=== PATIENT | female | born 1990 | race Caucasian/White ===

== ENCOUNTER 2016-10-31 16:36 | Emergency (ER) | payer MEDICAID ==
--- NOTE | 2016-10-31 17:41 | ED Physician Documentation ---
PD HPI URI - Stated complaint Stated Complaint: COUGH/VOMITING - Chief complaint Chief Complaint: Heent - History obtained from History obtained from: Patient - History of Present Illness Timing - onset: How many weeks ago (3) Timing duration: Weeks (3) Timing details: Gradual onset, Still present Associated symptoms: Ear pain (for several weeks), Dry cough (for 3-4 weeks), Chest pain (with coughing), Dyspnea. No: Fever, Chills, Sore throat, Hemoptysis , NVD, Bilateral edema Contributing factors: No: Sick contact, Travel, Immunocompromised Improves by: Rest Worsened by: Activity Similar symptoms before: Has not had sx before Recently seen: Clinic (Dx with URI. Also has had ear canal infection not improving with cortisporin type ear drops.) Review of Systems Constitutional: reports: Chills, Myalgias. denies: Fever Ears: reports: Ear pain (left more than right) Nose: reports: Sinus pressure / pain. denies: Rhinorrhea / runny nose, Congestion Throat: denies: Sore throat Cardiac: reports: Chest pain / pressure (withc oughing, sternal area). denies: Palpitations Respiratory: reports: Dyspnea, Cough. denies: Wheezing GI: denies: Abdominal Pain, Nausea, Vomiting, Diarrhea Skin: denies: Rash, Lesions PD PAST MEDICAL HISTORY - Past Medical History Past Medical History: Yes Cardiovascular: None Respiratory: None Neuro: None Endocrine/Autoimmune: None GI: GERD HEENT: Other (has had OE treated with with some oral meds and drops. She says it was cultured when would not go away and Dx with Pseudomonas. Was referred to ENT and appt next week. 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 - Present Medications Home Medications: Ambulatory Orders Medication Instructions Recorded Confirmed Albuterol Sulfate [Proair Hfa 2 puffs IH QID #1 hfa.aer.ad 10/31/16 Inhaler] Benzonatate [Tessalon] 100 mg PO TID PRN #25 capsule 10/31/16 Dexamethasone [Decadron] 4 mg PO DAILY #5 tablet 10/31/16 Doxycycline Hyclate 100 mg PO BID #14 tablet 10/31/16 Gabapentin [Neurontin] 300 mg PO TID 10/31/16 10/31/16 Guaifenesin 100 mg PO 10/31/16 10/31/16 Promethazine [Phenergan] 25 mg PO Q6H PRN #20 tab 10/31/16 QUEtiapine [SEROquel] 25 mg PO QPM 10/31/16 10/31/16 Sertraline [Zoloft] 25 mg PO DAILY 10/31/16 10/31/16 Tobramycin/Dexam Ophth Drops 2 drops EACHEAR QID #1 bottle 10/31/16 [Tobradex Ophth Drops] busPIRone [Buspar] 15 mg PO BID 10/31/16 10/31/16 guaiFENesin/CODEINE [Robitussin AC] 10 ml PO Q6H PRN #240 ml 10/31/16 - Allergies Allergies/Adverse Reactions: Allergies Allergy/AdvReac Type Severity Reaction Status Date / Time prazosin Allergy Unknown Verified 10/31/16 16:44 - Social History Does the pt smoke?: No Smoking Status: Never smoker Does the pt drink ETOH?: No Does the pt have substance abuse?: No - Immunizations Immunizations are current?: Yes - POLST Patient has POLST: No PD ED PE NORMAL - Vitals Vital signs reviewed: Yes - General General: Alert and oriented X 3, Well developed/nourished - HEENT HEENT: Atraumatic, Pharynx benign. No: Ears normal (right ear has mild redness medial canal. TM okay. Left ear with redness and some swelling medial canal and some yellowish coating of the canal and some of eardrum.) - Neck Neck: Supple, no meningeal sign, No adenopathy - Cardiac Cardiac: No murmur. No: RRR (fast but regular) - Respiratory Respiratory: Clear bilaterally - Abdomen Abdomen: Soft, Non tender - Derm Derm: Normal color, Warm and dry, No rash - Extremities Extremities: Normal ROM s pain, No edema, No calf tenderness / cord - Neuro Neuro: Alert and oriented X 3, occupational nurse 2-12 intact, No motor deficit, No sensory deficit, Normal speech Results - Vitals Vitals: Oxygen O2 Source Room air - EKG (time done) 18:54 Rate: Rate (enter#) (101) Rhythm: Sinus tachycardia [place]: Normal Intervals: Normal MA QRS: Normal Ischemia: Normal ST segments. No: ST elevation c/w ischemia, ST depression PD MEDICAL DECISION MAKING - ED course Complexity details: reviewed results, considered differential (still tachy at discharge, but looks okay and has regular rhythm, no murmur. ), d/w patient Departure - Departure Disposition: 01 Home, Self Care Clinical Impression: Persistent cough for 3 weeks or longer, Otitis externa due to Pseudomonas aeruginosa Bronchitis, acute Qualifiers: Bronchitis organism: unspecified organism Qualified Code(s): J20.9 - Acute bronchitis, unspecified Dyspnea Qualifiers: Dyspnea type: unspecified Qualified Code(s): R06.00 - Dyspnea, unspecified Condition: Stable Record reviewed to determine appropriate education?: Yes Instructions: ED Upper Resp Infec Abx Tx Prescriptions: Dexamethasone [Decadron] 4 mg PO DAILY #5 tablet Doxycycline Hyclate 100 mg PO BID #14 tablet Promethazine [Phenergan] 25 mg PO Q6H PRN #20 tab PRN Reason: Nausea / Vomiting Albuterol Sulfate [Proair Hfa Inhaler] 2 puffs IH QID #1 hfa.aer.ad guaiFENesin/CODEINE [Robitussin AC] 10 ml PO Q6H PRN #240 ml PRN Reason: Cough Benzonatate [Tessalon] 100 mg PO TID PRN #25 capsule PRN Reason: Cough Tobramycin/Dexam Ophth Drops [Tobradex Ophth Drops] 2 drops EACHEAR QID #1 bottle Comments: There is a bunch of different medicines to try: For the cough you can use Tessalon or codeine cough medicine. For the bronchitis we will treat with doxycycline antibiotic and Decadron steroid as directed. Also use the albuterol inhaler 2 puffs 4 times a day to help with the chest tightness and cough. Phenergan if needed for nausea. Regarding the ear infection, you could try tobramycin which comes as an eyedrop that can be used in the ear and often is effective on Pseudomonas. Follow-up with your primary care if not improved in the next week. Discharge Date/Time: 10/31/16 19:01
[2016-10-31] MEDS ORDERED: DEXAMETHASONE 10 MG/ML VIAL PO STA (17:54)
[2016-10-31] MEDS ORDERED: BENZONATATE 100 MG CAPSULE PO STA (17:54)
[2016-10-31] MEDS ORDERED: PROMETHAZINE 25 MG TABLET PO STA (17:54)
[2016-10-31] MEDS ORDERED: PROMETHAZINE 25 MG TABLET ONE (18:06)
[2016-10-31] MEDS ORDERED: CHERRY SYRUP 10 ML UDC PO ONE (18:07)
[2016-10-31] MEDS ORDERED: BENZONATATE 100 MG CAPSULE PO ONE (18:07)
[2016-10-31] MEDS ORDERED: DEXAMETHASONE 10 MG/ML VIAL ONE (18:07)
[2016-10-31 18:47] VITALS: BP 150/98
== END 2016-10-31 19:01 | disposition home or self-care (01) ==
LOC: ED 16:36
DX: J20.9 Acute bronchitis, unspecified (principal); B96.5 Pseudomonas (aeruginosa) (mallei) (pseudomallei) as the cause of diseases classified elsewhere; H62.40 Otitis externa in other diseases classified elsewhere, unspecified ear; R06.00 Dyspnea, unspecified; R05 Cough; K21.9 Gastro-esophageal reflux disease without esophagitis
CPT/HCPCS: 93005; 99283; A9270; Q0169

== ENCOUNTER 2017-04-21 14:07 | Outpatient (CLI) | payer BC ==
--- NOTE | 2017-04-21 16:16 | Ultrasound Report ---
EXAM: PELVIC ULTRASOUND EXAM DATE: 04/21/2017 03:24 PM. CLINICAL HISTORY: Right lower quadrant pain COMPARISON: None. TECHNIQUE: Realtime transabdominal pelvic scan performed to identify the uterus and adnexa and as an overview of other pelvic structures, followed by transvaginal scan to provide greater detail of the u terus and adnexa, with static image documentation. FINDINGS: Uterus: 9.3 x 4.5 x 5.5 cm, volume 114 cc. Anteverted position. Normal overall size and echotexture. Masses: None. Endometrium: 8 mm. Minimal subendometrial cyst with calcification measuring 6 mm. Cervix: Unremarkable. Right Ovary: 3.8 x 2.0 x 2.1 cm, volume 8.3 cc. Normal echotexture and blood flow. Left Ovary: 2.9 x 1.4 x 1.8 cm, volume 3.5 cc. Normal echotexture and blood flow. Free Fluid: None. Other: None. IMPRESSION: Essentially unremarkable pelvic ultrasound. [facility] Referring Provider Line: [phone] SITE ID: [id number]
== END 2017-04-21 14:08 | disposition home or self-care (01) ==
LOC: DI 14:07
PROVIDERS: ATTEND Specialist
DX: R10.31 Right lower quadrant pain (principal)
CPT/HCPCS: 76830; 76856

== ENCOUNTER 2017-10-16 08:44 | Emergency (ER) | payer OTHER, BC ==
[2017-10-16] MEDS ORDERED: ONDANSETRON ODT 4 MG TABLET TL STA (10:39)
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
[2017-10-16 10:54] LABS: BILIRUBIN,URINE NEGATIVE (NEGATIVE); GLUCOSE, URINE (UA) NEGATIVE (NEGATIVE); KETONES,URINE (UA) NEGATIVE (NEGATIVE); LEUKOCYTE ESTERASE, URINE NEGATIVE (NEGATIVE); NITRITE,URINE NEGATIVE (NEGATIVE); OCCULT BLOOD,URINE NEGATIVE (NEGATIVE); PROTEIN,URINE NEGATIVE (NEGATIVE); UROBILINOGEN,URINE 0.2 (NORMAL) E.U./dL (NORMAL)
[2017-10-16 10:58] LABS: CLARITY,URINE CLEAR (CLEAR); HCG UR QUAL NEGATIVE
[2017-10-16] MEDS ORDERED: ACETAMINOPHEN 325 MG TABLET PO STA (11:30)
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
[2017-10-16 11:49] VITALS: BP 147/98
== END 2017-10-16 12:08 | disposition home or self-care (01) ==
LOC: ED 08:44 → MERGE 08:44 → ED 12:08
DX: S00.83XA Contusion of other part of head, initial encounter (principal); V89.2XXA Person injured in unspecified motor-vehicle accident, traffic, initial encounter; Y92.410 Unspecified street and highway as the place of occurrence of the external cause
CPT/HCPCS: 70486; 81003; 81025; 99283; A9270; Q0162; 81001; 87086

== ENCOUNTER 2017-12-08 13:40 | Emergency (ER) | payer BC, MEDICAID ==
[2017-12-08] MEDS ORDERED: SODIUM CHLORIDE 0.9% 1,000 ML IV ONE (14:01)
[2017-12-08] MEDS ORDERED: DEXAMETHASONE 10 MG/ML VIAL IVP STA (14:01)
[2017-12-08] MEDS ORDERED: KETOROLAC 60 MG/2 ML VIAL IVP STA (14:01)
[2017-12-08] MEDS ORDERED: PROCHLORPERAZINE 10 MG/2 ML VIAL IVP STA (14:02)
[2017-12-08] MEDS ORDERED: diphenhydrAMINE INJ 50 MG/ML VIAL IVP STA (14:02)
--- NOTE | 2017-12-08 14:07 | ED Physician Documentation ---
PD HPI HEADACHE - Stated complaint Stated Complaint: HEADACHE/ THROWING UP - Chief complaint Chief Complaint: Neuro - History obtained from History obtained from: Patient - History of Present Illness Timing - onset: How many weeks ago (1) Timing - onset during: Rest Timing - duration: Weeks (1) Timing - details: Gradual onset, Still present, Waxing and waning Location: Front Quality: Throbbing Associated symptoms: Nausea, Vomiting Improved by: Dark room, Quiet, Meds Worsened by: Light, Noise, Moving Contributing factors: No: Anticoagulated, Recent illness Similar symptoms before: Diagnosis (migriane) Recently seen: Clinic - Additional information Additional information: 27-year-old female with a history of migraine headaches has developed a migraine headache about 1 week ago. She has pain in the front of her head and she has had some nausea and vomiting associated with this as well. Usually when she has a migraine headache the last 2-3 days and this headache is lasted now 1 week and she has not had relief with the use of Tylenol with codeine. She did go and see her doctor at the clinic and she did not have resolution as expected. She states she has tried sumatriptan and with this and this is not helped as well. She denies an aura associated with this headache and denies pain in the back of her neck. Review of Systems Constitutional: denies: Fever Eyes: denies: Decreased vision Ears: reports: Loss of hearing. 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 - Present Medications Home Medications: Ambulatory Orders Medication Instructions Recorded Confirmed busPIRone [Buspar] 15 mg PO BID 10/31/16 10/31/16 Fexofenadine HCl [Fide Allergy] 180 mg PO DAILY 10/16/17 Loratadine [Claritin] 1 tab PO DAILY 10/16/17 Propranolol [Inderal] 10/16/17 traZODone [Desyrel] 1 tab PO DAILY 10/16/17 Acetaminophen/Cod 300/30 [Tylenol 1 each PO ONCE 12/08/17 12/08/17 #3] - Allergies Allergies/Adverse Reactions: Allergies Allergy/AdvReac Type Severity Reaction Status Date / Time prazosin Allergy Unknown Verified 12/08/17 13:48 - Social History Does the pt smoke?: No Smoking Status: Never smoker Does the pt drink ETOH?: No Does the pt have substance abuse?: No - Immunizations Immunizations are current?: Yes - POLST Patient has POLST: No PD ED PE NORMAL - Vitals Vital signs reviewed: Yes (hypertensive) - General General: Alert and oriented X 3, No acute distress, Well developed/nourished - HEENT HEENT: Atraumatic, PERRL, EOMI, Other (The right TM is almost clear today and the left is erythematous and dull ) - Neck Neck: Supple, no meningeal sign, No bony TTP, Other (no significant tension to the trapezius ) - Cardiac Cardiac: RRR, No murmur - Respiratory Respiratory: No respiratory distress, Clear bilaterally - Abdomen Abdomen: Soft, Non tender - Back Back: No CVA TTP, No spinal TTP - Derm Derm: Normal color, Warm and dry, No rash - Extremities Extremities: No deformity, No edema - Neuro Neuro: Alert and oriented X 3, cash clerk 2-12 intact, No motor deficit, No sensory deficit, Normal speech Eye Opening: Spontaneous Motor: Obeys Commands Verbal: Oriented GCS Score: 15 - Psych Psych: Normal mood, Normal affect Results - Vitals Vitals: Vital Signs - 24 hr 12/08/17 13:45 Temperature 36.1 C L Heart Rate 99 Respiratory 16 Rate Blood Pressure 138/94 H O2 Saturation 100 Oxygen O2 Source Room air - Labs Labs: Laboratory Tests 12/08/17 12/08/17 12/08/17 14:10 14:10 15:22 WBC 9.1 RBC 4.26 Hgb 13.1 Hct 38.2 MCV 89.5 MCH 30.8 MCHC 34.5 RDW 15.1 H Plt Count 375 MPV 6.9 L Neut # (Auto) 8.3 H Lymph # (Auto) 0.4 L [place] # (Auto) 0.4 Eos # (Auto) 0.0 Baso # (Auto) 0.0 Absolute Nucleated RBC 0.00 Nucleated RBC % 0.0 Sodium 134 L Potassium 3.5 Chloride 100 L Carbon Dioxide 24 Anion Gap 10.0 BUN 15 Creatinine 0.6 Estimated GFR (MDRD) 118 Glucose 105 H Calcium 9.1 Total Bilirubin 0.6 AST 23 ALT 19 Alkaline Phosphatase 76 Total Protein 7.9 Albumin 4.4 Globulin 3.5 Albumin/Globulin Ratio 1.3 Lipase 24 Urine Color YELLOW Urine Clarity CLEAR Urine pH 6.0 Ur Specific [place] 1.010 Urine Protein NEGATIVE Urine Glucose (UA) NEGATIVE Urine Ketones NEGATIVE Urine Occult Blood TRACE-INTA Urine Nitrite NEGATIVE Urine Bilirubin NEGATIVE Urine Urobilinogen 0.2 (NORMAL) Ur Leukocyte Esterase NEGATIVE Ur Microscopic Review NOT INDICATED Urine Culture Comments NOT INDICATED Urine HCG, Qual NEGATIVE Procedures - IVC sono (time) 1400 Bedside IVC sono: IVC measures (cm) (0.97), IVC collapsed c insp (cm) (complete) , Dehydration (est 1.5 liter deficit) PD MEDICAL DECISION MAKING - ED course Complexity details: reviewed results, re-evaluated patient, considered differential, d/w patient ED course: 27-year-old female with a history of migraine has developed a headache lasting 4 days. She is administered dexamethasone Compazine Benadryl Toradol and a liter of saline. She has improvement in her symptoms. - Sepsis Event Vital Signs: Vital Signs - 24 hr 12/08/17 13:45 Temperature 36.1 C L Heart Rate 99 Respiratory 16 Rate Blood Pressure 138/94 H O2 Saturation 100 Oxygen O2 Source Room air Departure - Departure Disposition: 01 Home, Self Care Clinical Impression: Migraine Qualifiers: Migraine type: without aura Status migrainosus presence: without status migrainosus Intractability: not intractable Qualified Code(s): G43.009 - Migraine without aura, not intractable, without status migrainosus Condition: Stable Instructions: ED Headache Migraine Follow-Up: ELENA BARRIGA ARNP [Primary Care Provider] -
[2017-12-08 14:30] LABS: BASOPHILS % (AUTO) 0.2 %; EOSINOPHILS % (AUTO) 0.2 %; HGB - HEMOGLOBIN 13.1 g/dL (12.0-16.0); LYMPHOCYTES # (AUTO) 0.4 10^3/uL (1.5-3.5); LYMPHOCYTES % (AUTO) 3.9 %; MEAN CORPUSCULAR HEMOGLOBIN 30.8 pg (27.0-31.0); MEAN CORPUSCULAR HGB CONC 34.5 g/dL (32.0-36.0); MEAN CORPUSCULAR VOLUME 89.5 fL (81.0-99.0); MEAN PLATELET VOLUME 6.9 fL (7.9-10.8); MONOCYTES # (AUTO) 0.4 10^3/uL (0.0-1.0); MONOCYTES % (AUTO) 4.7 %; NEUTROPHILS # (AUTO) 8.3 10^3/uL (1.5-6.6); PLT - PLATELET COUNT 375 10^3/uL (130-450); RED BLOOD COUNT 4.26 10^6/uL (4.20-5.40); RED CELL DISTRIBUTION WIDTH 15.1 % (12.0-15.0); WHITE BLOOD COUNT 9.1 x10^3/uL (4.8-10.8)
[2017-12-08 14:45] LABS: ALBUMIN 4.4 g/dL (3.2-5.5); ALBUMIN/GLOBULIN RATIO 1.3 (1.0-2.2); BILIRUBIN,TOTAL 0.6 mg/dL (0.2-1.0); CALCIUM 9.1 mg/dL (8.5-10.3); CREATININE 0.6 mg/dL (0.4-1.0); TOTAL PROTEIN 7.9 g/dL (6.7-8.2)
[2017-12-08 15:34] LABS: BILIRUBIN,URINE NEGATIVE (NEGATIVE); GLUCOSE, URINE (UA) NEGATIVE (NEGATIVE); KETONES,URINE (UA) NEGATIVE (NEGATIVE); LEUKOCYTE ESTERASE, URINE NEGATIVE (NEGATIVE); NITRITE,URINE NEGATIVE (NEGATIVE); OCCULT BLOOD,URINE TRACE-INTA (NEGATIVE); PROTEIN,URINE NEGATIVE (NEGATIVE); UROBILINOGEN,URINE 0.2 (NORMAL) E.U./dL (NORMAL)
[2017-12-08 15:37] LABS: CLARITY,URINE CLEAR (CLEAR); HCG UR QUAL NEGATIVE
[2017-12-08 16:11] VITALS: BP 128/82
== END 2017-12-08 16:11 | disposition home or self-care (01) ==
LOC: ED 13:40
DX: G43.009 Migraine without aura, not intractable, without status migrainosus (principal); E86.0 Dehydration
CPT/HCPCS: 80053; 81003; 81025; 83690; 85025; 96361; 96374; 96375; 99283; 99284; J1200; 36415; 81001; 87086

== ENCOUNTER 2019-01-28 12:59 | Outpatient (CLI) | payer BC | END 2019-01-28 13:00 | disposition home or self-care (01) | LOC: NS 12:59 | PROVIDERS: ATTEND Student in an Organized Health Care Education/Training Program | DX: E66.8 Other obesity (principal); Z68.33 Body mass index [BMI] 33.0-33.9, adult ==

== ENCOUNTER 2019-09-19 10:11 | Outpatient (CLI) | payer BC ==
[2019-09-19 12:00] LABS: BASOPHILS # (AUTO) 0.1 10^3/uL (0.0-0.1); BASOPHILS % (AUTO) 0.8 %; EOSINOPHILS # (AUTO) 0.2 10^3/uL (0.0-0.7); EOSINOPHILS % (AUTO) 2.4 %; HGB - HEMOGLOBIN 12.7 g/dL (12.0-16.0); LYMPHOCYTES # (AUTO) 1.6 10^3/uL (1.5-3.5); LYMPHOCYTES % (AUTO) 20.8 %; MEAN CORPUSCULAR HEMOGLOBIN 30.1 pg (27.0-31.0); MEAN CORPUSCULAR HGB CONC 31.6 g/dL (32.0-36.0); MEAN CORPUSCULAR VOLUME 95.3 fL (81.0-99.0); MEAN PLATELET VOLUME 9.5 fL (7.9-10.8); MONOCYTES # (AUTO) 0.6 10^3/uL (0.0-1.0); MONOCYTES % (AUTO) 7.6 %; NEUTROPHILS # (AUTO) 5.2 10^3/uL (1.5-6.6); NEUTROPHILS % (AUTO) 68.3 %; PLT - PLATELET COUNT 431 10^3/uL (130-450); RED BLOOD COUNT 4.22 10^6/uL (4.20-5.40); RED CELL DISTRIBUTION WIDTH 13.9 % (12.0-15.0); WHITE BLOOD COUNT 7.6 x10^3/uL (4.8-10.8)
[2019-09-19 12:41] LABS: ALBUMIN/GLOBULIN RATIO 1.3 (1.0-2.2); ALKALINE PHOSPHATASE 77 IU/L (42-121); ALT ALANINE AMINOTRANSFERASE 36 IU/L (10-60); AST ASPARTATE AMINOTRANSFERASE 33 IU/L (10-42); BILIRUBIN,TOTAL 0.7 mg/dL (0.2-1.0); BUN - BLOOD UREA NITROGEN 21 mg/dL (6-20); CALCIUM 8.9 mg/dL (8.5-10.3); CARBON DIOXIDE - CO2 22 mmol/L (21-32); CHLORIDE 102 mmol/L (101-111); CHOL/HDL RATIO 5.5 (<4.4); CHOLESTEROL 219 mg/dL; CREATININE 0.7 mg/dL (0.4-1.0); GLUCOSE 100 mg/dL (70-100); HDL CHOLESTEROL 40 mg/dL; LDL CHOLESTEROL,CALCULATED 121 mg/dL; SODIUM 136 mmol/L (135-145); TOTAL PROTEIN 7.2 g/dL (6.7-8.2); VLDL CHOLESTEROL 58 mg/dL
== END 2019-09-19 23:59 | disposition home or self-care (01) ==
LOC: LAB.WCP 10:11
PROVIDERS: ATTEND Family Medicine
DX: I10 Essential (primary) hypertension (principal); F41.9 Anxiety disorder, unspecified; L70.9 Acne, unspecified
CPT/HCPCS: 36415; 80053; 80061; 83721; 84443; 85025

== ENCOUNTER 2019-11-29 10:09 | Outpatient (CLI) | payer BC ==
--- NOTE | 2019-11-29 10:54 | XRAY Report ---
PROCEDURE: Elbow 2 View LT INDICATIONS: ELBOW PAIN, LEFT TECHNIQUE: 2 views of the elbow were acquired. COMPARISON: None available FINDINGS: Bones: No fractures or dislocations. No suspicious bony lesions. Soft tissues: No definite elbow joint effusion. No suspicious soft tissue calcifications. IMPRESSION: No displaced fracture can be seen. Note: Findings of no fracture related to PA Young through the answering service at 9:50 AM [facility] on 11/29/2019. Reviewed by: Uvaldo Ross MD on 11/29/2019 9:53 AM [facility] Approved by: Uvaldo Ross MD on 11/29/2019 9:53 AM [facility] Station ID: [id number]
== END 2019-11-29 10:10 | disposition home or self-care (01) ==
LOC: DI 10:09
PROVIDERS: ATTEND Family Medicine
DX: M25.522 Pain in left elbow (principal)

== ENCOUNTER 2020-05-25 08:00 | Outpatient (CLI) | payer BC ==
[2020-05-26 12:21] LABS: BASOPHILS # (AUTO) 0.1 10^3/uL (0.0-0.1); BASOPHILS % (AUTO) 0.5 %; EOSINOPHILS # (AUTO) 0.3 10^3/uL (0.0-0.7); EOSINOPHILS % (AUTO) 2.1 %; HGB - HEMOGLOBIN 12.5 g/dL (12.0-16.0); LYMPHOCYTES # (AUTO) 2.5 10^3/uL (1.5-3.5); LYMPHOCYTES % (AUTO) 21.6 %; MEAN CORPUSCULAR HEMOGLOBIN 30.6 pg (27.0-31.0); MEAN CORPUSCULAR HGB CONC 30.5 g/dL (32.0-36.0); MEAN CORPUSCULAR VOLUME 100.2 fL (81.0-99.0); MEAN PLATELET VOLUME 9.4 fL (7.9-10.8); MONOCYTES # (AUTO) 0.8 10^3/uL (0.0-1.0); MONOCYTES % (AUTO) 6.8 %; NEUTROPHILS % (AUTO) 68.6 %; PLT - PLATELET COUNT 493 10^3/uL (130-450); RED BLOOD COUNT 4.09 10^6/uL (4.20-5.40); RED CELL DISTRIBUTION WIDTH 14.4 % (12.0-15.0); WHITE BLOOD COUNT 11.7 x10^3/uL (4.8-10.8)
[2020-05-26 12:37] LABS: ALBUMIN 4.1 g/dL (3.2-5.5); ALBUMIN/GLOBULIN RATIO 1.3 (1.0-2.2); BILIRUBIN,TOTAL 0.3 mg/dL (0.2-1.0); CALCIUM 9.1 mg/dL (8.5-10.3); CREATININE 0.8 mg/dL (0.4-1.0); TOTAL PROTEIN 7.2 g/dL (6.7-8.2)
[2020-05-26 15:13] LABS: HEMOGLOBIN A1c% 5.5 % (4.27-6.07)
== END 2020-05-25 23:59 | disposition home or self-care (01) ==
LOC: LAB.WCP 08:00
PROVIDERS: ATTEND Nurse Practitioner Family
DX: E88.81 Metabolic syndrome and other insulin resistance (principal); I10 Essential (primary) hypertension
CPT/HCPCS: 36415; 80053; 83036; 85025

== ENCOUNTER 2020-06-04 08:00 | Outpatient (CLI) | payer BC ==
[2020-06-04 18:15] LABS: BASOPHILS # (AUTO) 0.1 10^3/uL (0.0-0.1); BASOPHILS % (AUTO) 0.5 %; EOSINOPHILS # (AUTO) 0.2 10^3/uL (0.0-0.7); EOSINOPHILS % (AUTO) 1.8 %; HCT - HEMATOCRIT 38.9 % (37.0-47.0); HGB - HEMOGLOBIN 12.7 g/dL (12.0-16.0); LYMPHOCYTES # (AUTO) 2.5 10^3/uL (1.5-3.5); LYMPHOCYTES % (AUTO) 22.1 %; MEAN CORPUSCULAR HEMOGLOBIN 30.9 pg (27.0-31.0); MEAN CORPUSCULAR HGB CONC 32.6 g/dL (32.0-36.0); MEAN CORPUSCULAR VOLUME 94.6 fL (81.0-99.0); MEAN PLATELET VOLUME 9.1 fL (7.9-10.8); MONOCYTES # (AUTO) 0.9 10^3/uL (0.0-1.0); MONOCYTES % (AUTO) 8.4 %; NEUTROPHILS # (AUTO) 7.4 10^3/uL (1.5-6.6); NEUTROPHILS % (AUTO) 66.8 %; PLT - PLATELET COUNT 521 10^3/uL (130-450); RED BLOOD COUNT 4.11 10^6/uL (4.20-5.40); RED CELL DISTRIBUTION WIDTH 14.1 % (12.0-15.0); WHITE BLOOD COUNT 11.1 x10^3/uL (4.8-10.8)
[2020-06-04 18:56] LABS: FOLATE 6.48 ng/mL (5.90 - >24.8)
== END 2020-06-04 23:59 | disposition home or self-care (01) ==
LOC: LAB.WCP 08:00
PROVIDERS: ATTEND Nurse Practitioner Family
DX: D64.9 Anemia, unspecified (principal); D72.829 Elevated white blood cell count, unspecified
CPT/HCPCS: 36415; 82607; 82746; 85025

== ENCOUNTER 2020-08-27 15:59 | Outpatient (CLI) | payer BC ==
--- NOTE | 2020-08-27 16:30 | XRAY Report ---
PROCEDURE: Cervical Spine 2 View INDICATIONS: NECK PAIN TECHNIQUE: 3 view(s) of the cervical spine were acquired. COMPARISON: None. FINDINGS: Bones: No fractures or dislocations to the C7 level. The lateral masses of C1 appear intact on the odontoid view. No suspicious bony lesions. Mild disc space narrowing and endplate osteophyte format ion at C4-C5, and C5-C6, indicating degenerative disc disease. Soft tissues: No prevertebral soft tissue swelling. IMPRESSION: Mild mid cervical degenerative disc disease. No acute fracture. No osseous lesion. If sy mptoms and/or clinical suspicion for pathology continue, further assessment with repeat plain films, or advanced imaging (e.g., CT, MRI, or bone scan) is recommended for further assessment. Reviewed by: Carlin Gaona MD on 08/27/2020 4:28 PM PDT Approved by: Carlin Gaona MD on 08/27/2020 4:28 PM PDT Station ID: [id number]
== END 2020-08-27 16:00 | disposition home or self-care (01) ==
LOC: DI.N 15:59
PROVIDERS: ATTEND Nurse Practitioner Family
DX: M50.321 Other cervical disc degeneration at C4-C5 level (principal)

== ENCOUNTER 2020-11-21 15:16 | Emergency (ER) | payer BC ==
[2020-11-21] MEDS ORDERED: oxyCODONE 5 MG TABLET PO STA (18:14)
[2020-11-21] MEDS ORDERED: DEXAMETHASONE 10 MG/ML VIAL IVP STA (18:14)
[2020-11-21] MEDS ORDERED: KETOROLAC 30 MG/ML VIAL IVP STA (18:14)
--- NOTE | 2020-11-21 18:14 | ED Physician Documentation ---
History of Present Illness - Stated complaint Stated Complaint: NECK PX/TINGLES - Chief complaint Chief Complaint: General - History obtained from History obtained from: Patient - History of Present Illness Pain level max: 7 Pain level now: 7 - Additonal information Additional information: Patient is a 30-year-old female who presents to the emergency department stating for the past several weeks she has had pain to her cervical spine. She states that she gets tingling sensations in her bilateral upper extremities. Worse with movement, better with rest. States Motrin is not helping the pain. She also states she has been getting intermittent dizzy spells. She states these last from 1 to 10 minutes. Associated with lightheadedness. Seems to be when her pain worsens in her neck. Review of Systems Constitutional: denies: Fever, Chills Nose: denies: Rhinorrhea / runny nose, Congestion Throat: denies: Sore throat Cardiac: denies: Chest pain / pressure, Palpitations Respiratory: denies: Dyspnea, Cough, Wheezing GI: denies: Abdominal Pain, Nausea, Vomiting, Diarrhea Skin: denies: Rash Musculoskeletal: denies: Back pain Neurologic: denies: Focal weakness, Seizure, Confused, Headache PD PAST MEDICAL HISTORY - Past Medical History Cardiovascular: None, Other Respiratory: None Endocrine/Autoimmune: None GI: GERD HEENT: Other Psych: Depression, Anxiety - Past Surgical History Past Surgical History: Yes General: EGD 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 - Present Medications Home Medications: Ambulatory Orders Medication Instructions Recorded Confirmed busPIRone [Buspar] 15 mg PO BID 10/31/16 10/31/16 Fexofenadine HCl [Fide Allergy] 180 mg PO DAILY 10/16/17 Loratadine [Claritin] 1 tab PO DAILY 10/16/17 Propranolol [Inderal] 10/16/17 traZODone [Desyrel] 1 tab PO DAILY 10/16/17 Acetaminophen/Cod 300/30 [Tylenol 1 each PO ONCE 12/08/17 12/08/17 #3] Gabapentin [Neurontin] 300 mg PO TID #90 11/21/20 Oxycodone HCl/Acetaminophen 1 - 2 each PO Q6H PRN #14 tablet 11/21/20 [Percocet 5-325 mg Tablet] methylPREDNISolone [Medrol] 4 mg PO DAILY #1 11/21/20 - Allergies Allergies/Adverse Reactions: Allergies Allergy/AdvReac Type Severity Reaction Status Date / Time prazosin Allergy Unknown Verified 11/21/20 16:04 - Social History Does the pt smoke?: No Smoking Status: Never smoker Does the pt drink ETOH?: No Does the pt have substance abuse?: No - Immunizations Immunizations are current?: Yes - POLST Patient has POLST: No PD ED PE NORMAL - Vitals Vital signs reviewed: Yes - General General: Alert and oriented X 3, No acute distress - HEENT HEENT: Moist mucous membranes, Pharynx benign - Neck Neck: No JVD, No bruit, Other (TTP posterior cervical spine. no midline TTP. mild B paraspinal spasm. ) - Cardiac Cardiac: RRR, Strong equal pulses - Respiratory Respiratory: No respiratory distress, Clear bilaterally - Abdomen Abdomen: Soft, Non tender, Non distended - Back Back: No spinal TTP - Derm Derm: Warm and dry - Extremities Extremities: No edema - Neuro Neuro: Alert and oriented X 3, mud boss 2-12 intact, No motor deficit, No sensory deficit, Normal speech Eye Opening: Spontaneous Motor: Obeys Commands Verbal: Oriented GCS Score: 15 Results - Vitals Vitals: Vital Signs - 24 hr 11/21/20 11/21/20 11/21/20 16:00 18:41 19:28 Temperature 36.4 C L Heart Rate 80 89 93 Respiratory 16 18 18 Rate Blood Pressure 152/104 H 148/94 H O2 Saturation 100 99 11/21/20 20:17 Temperature 37.2 C Heart Rate 99 Respiratory 17 Rate Blood Pressure 150/90 H O2 Saturation 99 Oxygen O2 Source Room air - EKG (time done) 1811 Rate: Rate (enter#) (82) Rhythm: NSR [place]: Normal Intervals: Normal [place] QRS: Normal Ischemia: Normal ST segments - Labs Labs: Laboratory Tests 11/21/20 11/21/20 11/21/20 18:12 18:12 18:12 WBC 11.2 H RBC 4.28 Hgb 12.6 Hct 39.7 MCV 92.8 MCH 29.4 MCHC 31.7 L RDW 14.8 Plt Count 493 H MPV 8.6 Neut # (Auto) 8.5 H Lymph # (Auto) 1.8 [place] # (Auto) 0.6 Eos # (Auto) 0.2 Baso # (Auto) 0.1 Absolute Nucleated RBC 0.00 Nucleated RBC % 0.0 Sodium 140 Potassium 3.6 Chloride 103 Carbon Dioxide 24 Anion Gap 13.0 BUN 19 Creatinine 0.7 Estimated GFR (MDRD) 97 Glucose 108 H Calcium 9.4 Total Bilirubin 0.5 AST 19 ALT 20 Alkaline Phosphatase 76 Troponin I High Sens 2.4 Total Protein 7.7 Albumin 4.7 Globulin 3.0 Albumin/Globulin Ratio 1.6 Lipase 28 - Rads (name of study) cxr Radiology: Final report received, EMP read contemporaneously, See rad report (no acute disease) PD MEDICAL DECISION MAKING - ED course Complexity details: reviewed results, re-evaluated patient, considered differential, d/w patient ED course: 30-year-old female with ongoing neck pain. Sounds like cervical radiculopathy. She is working on getting scheduled for an MRI. No MRI available here tonight. No acute neurological deficits. Pain well controlled. She was having episodes of dizziness and near syncope. No evidence of cardiac etiology. Likely related to her pain in her neck. We will have her follow-up closely with her doctor for urgent MRI. She states that she was on prednisone recently, stopped about a week ago and that is when the pain increased in her neck again. We will trial her on a Medrol Dosepak. We will place her on gabapentin and pain medication as well. Patient counseled regarding signs and symptoms for which I believe and urgent re-evaluation would be necessary. Patient with good understanding of and agreement to plan and is comfortable going home at this time This document was made in part using voice recognition software. While efforts are made to proofread this document, sound alike and grammatical errors may occur. Departure - Departure Disposition: 01 Home, Self Care Clinical Impression: Cervical radiculopathy, Near syncope Condition: Good Instructions: ED Cervical Radiculopathy, ED Near Syncope Unkn Follow-Up: Perri Bowen ARNP [Primary Care Provider] - Within 1 week Prescriptions: methylPREDNISolone [Medrol] 4 mg PO DAILY #1 Gabapentin [Neurontin] 300 mg PO TID #90 Oxycodone HCl/Acetaminophen [Percocet 5-325 mg Tablet] 1 - 2 each PO Q6H PRN #14 tablet PRN Reason: pain Comments: I do think it is reasonable that you have an MRI at this time. There is no MRI in the hospital tonight. Please follow-up with your doctor for further care. I am prescribing a short course of narcotic pain medication for you. These are potentially dangerous and addictive medications that should be used carefully. These medications may constipate you. Take an tckg-bll-yilpdgq stool softener (docusate) twice daily with plenty of water while taking these medications. If you go 24 hours without a bowel movement, take mxsb-akx-amgtouk miralax, per package instructions. Do not drink or drive while taking these medications. If you received narcotic or sedating medications while in the emergency department, do not drive for 24 hours. Store this medication in a safe, secure place and out of reach of children. It is a violation of federal law to give or sell this medication to another person or to use in a manner other than prescribed. The ED will not refill narcotic prescriptions, including prescriptions lost or stolen. To dispose of unwanted medications: 1. [facility] at [address] in [place] has a medication drop box. They accept prescription medications (in pill form) Sunday through Sunday 9:00 a.m. to 5:00 p.m. 2. The [facility] Police Department accepts prescription medications (in pill form only) for disposal year round. Call for more information. 3. Contact the [facility] for the next [facility] sponsored prescription drug collection event. , [phone], or [phone]; Discharge Date/Time: 11/21/20 20:23
[2020-11-21 18:19] LABS: BASOPHILS # (AUTO) 0.1 10^3/uL (0.0-0.1); BASOPHILS % (AUTO) 0.4 %; EOSINOPHILS # (AUTO) 0.2 10^3/uL (0.0-0.7); EOSINOPHILS % (AUTO) 1.7 %; HCT - HEMATOCRIT 39.7 % (37.0-47.0); HGB - HEMOGLOBIN 12.6 g/dL (12.0-16.0); LYMPHOCYTES # (AUTO) 1.8 10^3/uL (1.5-3.5); LYMPHOCYTES % (AUTO) 16.2 %; MEAN CORPUSCULAR HEMOGLOBIN 29.4 pg (27.0-31.0); MEAN CORPUSCULAR HGB CONC 31.7 g/dL (32.0-36.0); MEAN CORPUSCULAR VOLUME 92.8 fL (81.0-99.0); MEAN PLATELET VOLUME 8.6 fL (7.9-10.8); MONOCYTES # (AUTO) 0.6 10^3/uL (0.0-1.0); MONOCYTES % (AUTO) 4.9 %; NEUTROPHILS # (AUTO) 8.5 10^3/uL (1.5-6.6); NEUTROPHILS % (AUTO) 76.5 %; PLT - PLATELET COUNT 493 10^3/uL (130-450); RED BLOOD COUNT 4.28 10^6/uL (4.20-5.40); RED CELL DISTRIBUTION WIDTH 14.8 % (12.0-15.0); WHITE BLOOD COUNT 11.2 x10^3/uL (4.8-10.8)
[2020-11-21 18:32] LABS: ALBUMIN 4.7 g/dL (3.2-5.5); ALBUMIN/GLOBULIN RATIO 1.6 (1.0-2.2); BILIRUBIN,TOTAL 0.5 mg/dL (0.2-1.0); CALCIUM 9.4 mg/dL (8.5-10.3); CREATININE 0.7 mg/dL (0.4-1.0); POTASSIUM 3.6 mmol/L (3.5-5.0); TOTAL PROTEIN 7.7 g/dL (6.7-8.2)
[2020-11-21] MEDS ORDERED: LORazepam 2 MG/ML VIAL IVP STA (19:31)
--- NOTE | 2020-11-21 19:32 | XRAY Report ---
PROCEDURE: Chest 1 View X-Ray INDICATIONS: near syncope TECHNIQUE: One view of the chest was acquired. COMPARISON: None FINDINGS: Surgical changes and devices: None. Lungs and pleura: No pleural effusions or pneumothorax. Scattered atelectasis without focal consol idation. Mediastinum: Mediastinal contours appear normal. Heart size is normal. Bones and chest wall: No suspicious bony lesions. Overlying soft tissues appear unremarkable. IMPRESSION: Mild scattered atelectasis. No focal consolidation. Reviewed by: Hieu Freitas MD on 11/21/2020 7:30 PM PDT Approved by: Hieu Freitas MD on 11/21/2020 7:30 PM PDT Station ID: [id number]
[2020-11-21 20:18] VITALS: BP 150/90
== END 2020-11-21 20:23 | disposition home or self-care (01) ==
LOC: ED 15:16
DX: M54.12 Radiculopathy, cervical region (principal); R55 Syncope and collapse
CPT/HCPCS: 36415; 71045; 80053; 83690; 84484; 85025; 93005; 96374; 96375; 99284; A9270; J2060

== ENCOUNTER 2020-11-23 10:24 | Outpatient (CLI) | payer BC ==
--- NOTE | 2020-11-23 13:10 | MRI Report ---
PROCEDURE: Cervical Spine W/O INDICATIONS: NECK PAIN TECHNIQUE: Noncontrast sagittal T1 spin echo and T2 fast spin echo, sagittal STIR, foraminal oblique sagittal T2 fast spin echo, and axial gradient echo or T2 fast spin echo through the cervical spine. COMPARISON: None. FINDINGS: Image quality: Excellent. Alignment and Curvature: Straightening of usual cervical lordosis. Otherwise normal alignment. Verteb ral body heights maintained. Bone Marrow: Normal bone marrow signal intensity. Spinal Cord: Normal morphology and signal intensity of the cervical cord. There is no syrinx Regional Soft Tissues: No paravertebral masses. Prevertebral soft tissues are normal in thickness. From C2-C3 through C7-T1: No spinal canal or neural foraminal stenosis. Minimal disc height loss at C 4-C5 and C5-C6 without disc herniation. No facet hypertrophy, or uncovertebral hypertrophy. No signif icant interval changes otherwise. IMPRESSION: No spinal canal stenosis or neural foraminal stenosis. Minimal degenerative change at C4-C5 and C5-C6. Reviewed by: Rigoberto Mcduffie MD on 11/23/2020 1:09 PM PDT Approved by: Rigoberto Mcduffie MD on 11/23/2020 1:09 PM PDT Station ID: [id number]
== END 2020-11-23 10:25 | disposition home or self-care (01) ==
LOC: DI 10:24
PROVIDERS: ATTEND Nurse Practitioner
DX: M47.892 Other spondylosis, cervical region (principal); M50.321 Other cervical disc degeneration at C4-C5 level

== ENCOUNTER 2020-11-29 16:16 | Outpatient (CLI) | payer BC ==
[2020-11-29 20:53] LABS: RHEUMATOID FACTOR NEGATIVE (Negative)
[2020-11-29 21:00] LABS: URIC ACID 4.4 mg/dL (2.6-7.2)
[2020-11-29 21:01] LABS: CRP - C-REACTIVE PROTEIN < 1.0 mg/dL (0-1.0)
[2020-12-02 10:45] LABS: DNA (DS) ANTIBODY 1 IU/mL
[2020-12-02 19:01] LABS: CYCLIC CITRULL PEPTIDE CCP IGG <16 UNITS
[2020-12-02 23:51] LABS: ANA SCREEN POSITIVE (NEGATIVE)
== END 2020-11-29 16:17 | disposition home or self-care (01) ==
LOC: LAB.N 16:16
PROVIDERS: ATTEND Nurse Practitioner
DX: M54.2 Cervicalgia (principal); M08.90 Juvenile arthritis, unspecified, unspecified site
CPT/HCPCS: 36415; 84550; 85651; 86038; 86140; 86200; 86225; 86430

== ENCOUNTER 2021-02-28 16:48 | Outpatient (CLI) | payer BC | END 2021-02-28 23:59 | disposition home or self-care (01) | LOC: LAB 16:48 | PROVIDERS: ATTEND Nurse Practitioner | DX: J01.90 Acute sinusitis, unspecified (principal); J06.9 Acute upper respiratory infection, unspecified; Z20.822 Contact with and (suspected) exposure to COVID-19 | CPT/HCPCS: 87275; 87276 ==

== ENCOUNTER 2021-06-04 09:15 | Outpatient (CLI) | payer BC ==
[2021-06-04 13:55] LABS: BILIRUBIN,URINE NEGATIVE (NEGATIVE); GLUCOSE, URINE (UA) NEGATIVE (NEGATIVE); KETONES,URINE (UA) NEGATIVE (NEGATIVE); LEUKOCYTE ESTERASE, URINE NEGATIVE (NEGATIVE); NITRITE,URINE NEGATIVE (NEGATIVE); OCCULT BLOOD,URINE NEGATIVE (NEGATIVE); PROTEIN,URINE NEGATIVE (NEGATIVE); UROBILINOGEN,URINE 0.2 (NORMAL) E.U./dL (NORMAL)
[2021-06-04 14:03] LABS: BACTERIA,URINE None Seen /HPF (None Seen); CLARITY,URINE CLEAR (CLEAR); RBC,URINE None Seen /HPF (0-5); SQUAMOUS EPITHELIAL CELL,UR FEW Squamous (<= Few); WBC,URINE 0-3 /HPF (0-5)
[2021-06-04 14:07] LABS: BASOPHILS # (AUTO) 0.1 10^3/uL (0.0-0.1); EOSINOPHILS # (AUTO) 0.3 10^3/uL (0.0-0.7); HCT - HEMATOCRIT 38.4 % (37.0-47.0); HGB - HEMOGLOBIN 12.1 g/dL (12.0-16.0); LYMPHOCYTES # (AUTO) 1.8 10^3/uL (1.5-3.5); LYMPHOCYTES % (AUTO) 29.2 %; MEAN CORPUSCULAR HGB CONC 31.5 g/dL (32.0-36.0); MEAN CORPUSCULAR VOLUME 92.1 fL (81.0-99.0); MEAN PLATELET VOLUME 9.3 fL (7.9-10.8); MONOCYTES # (AUTO) 0.6 10^3/uL (0.0-1.0); MONOCYTES % (AUTO) 9.8 %; NEUTROPHILS # (AUTO) 3.5 10^3/uL (1.5-6.6); NEUTROPHILS % (AUTO) 55.8 %; PLT - PLATELET COUNT 436 10^3/uL (130-450); RED BLOOD COUNT 4.17 10^6/uL (4.20-5.40); RED CELL DISTRIBUTION WIDTH 16.5 % (12.0-15.0); WHITE BLOOD COUNT 6.2 x10^3/uL (4.8-10.8)
[2021-06-04 14:42] LABS: ALBUMIN 4.3 g/dL (3.2-5.5); ALBUMIN/GLOBULIN RATIO 1.4 (1.0-2.2); ALKALINE PHOSPHATASE 60 IU/L (42-121); ALT ALANINE AMINOTRANSFERASE 18 IU/L (10-60); AST ASPARTATE AMINOTRANSFERASE 20 IU/L (10-42); BILIRUBIN,TOTAL 0.7 mg/dL (0.2-1.0); BUN - BLOOD UREA NITROGEN 23 mg/dL (6-20); CALCIUM 9.2 mg/dL (8.5-10.3); CARBON DIOXIDE - CO2 24 mmol/L (21-32); CHLORIDE 101 mmol/L (101-111); CHOL/HDL RATIO 5.6 (<4.4); CHOLESTEROL 269 mg/dL; CREATININE 0.7 mg/dL (0.4-1.0); GFR - MDRD 97 (>89); GLUCOSE 97 mg/dL (70-100); HDL CHOLESTEROL 48 mg/dL; LDL CHOLESTEROL,CALCULATED 179 mg/dL; LDL/HDL RATIO 3.7 (<4.4); POTASSIUM 3.7 mmol/L (3.5-5.0); SODIUM 135 mmol/L (135-145); TOTAL PROTEIN 7.4 g/dL (6.7-8.2); TRIGLYCERIDES 211 mg/dL; VLDL CHOLESTEROL 42 mg/dL
[2021-06-04 14:50] LABS: THYROID STIMULATING HORMONE 1.42 uIU/mL (0.34-5.60)
[2021-06-04 15:09] LABS: ESTIMATED AVERAGE GLUCOSE 108 mg/dL (70-100); HEMOGLOBIN A1c% 5.4 % (4.27-6.07)
== END 2021-06-04 09:16 | disposition home or self-care (01) ==
LOC: LAB.N 09:15
PROVIDERS: ATTEND Nurse Practitioner
DX: Z00.00 Encounter for general adult medical examination without abnormal findings (principal); E88.81 Metabolic syndrome and other insulin resistance; I10 Essential (primary) hypertension; R53.83 Other fatigue; D72.829 Elevated white blood cell count, unspecified
CPT/HCPCS: 36415; 80053; 80061; 81001; 83036; 83721; 84443; 85025; 87086

== ENCOUNTER 2021-06-05 14:07 | Emergency (ER) | payer BC ==
[2021-06-05] MEDS ORDERED: oxyCODONE 5 MG TABLET PO STA (14:39)
--- NOTE | 2021-06-05 14:39 | ED Physician Documentation ---
History of Present Illness - Stated complaint Stated Complaint: DIZZINESS,L SIDE RIB PX - Chief complaint Chief Complaint: Neuro - History obtained from History obtained from: Patient - History of Present Illness Timing: Last night Pain level max: 8 Pain level now: 8 - Additonal information Additional information: 30-year-old female presents to the emergency department after a syncopal event last night. She states that she got up to go to the restroom. She urinated and when she stood up she felt lightheaded and dizzy and "passed out". Her heard her fall and came and woke her up. There was no seizure activity. No tongue biting. No loss of bowel or bladder control. She states that she has pa ssed out before. She has a history of hypertension. She is on medications for this as well as acne. Has a history of a tubal ligation. Denies any possibility of . No nausea or vomiting. She did have a feeling of "heartburn" in her chest. She states this resolved with Tums. This was after the syncopal event. No recent illnesses. No fevers or chills. She states she did not eat and drink as well as usual yesterday. She is now complaining of pain to the left ribs. Unclear if she hit her head or not. She went to the walk-in clinic today and was sent here for evaluation Patient states that she is still feeling "off and fuzzy". She is unable to describe this feeling any further. Review of Systems Ten Systems: 10 systems reviewed and negative Constitutional: denies: Fever, Chills Nose: denies: Rhinorrhea / runny nose, Congestion Throat: denies: Sore throat Cardiac: denies: Chest pain / pressure, Palpitations Respiratory: denies: Cough GI: denies: Vomiting, Diarrhea : denies: Now EGA Skin: denies: Rash Musculoskeletal: denies: Neck pain, Back pain Neurologic: reports: Syncope. 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 - Present Medications Home Medications: Ambulatory Orders Medication Instructions Recorded Confirmed busPIRone [Buspar] 15 mg PO BID 10/31/16 10/31/16 Fexofenadine HCl [Fide Allergy] 180 mg PO DAILY 10/16/17 Loratadine [Claritin] 1 tab PO DAILY 10/16/17 Propranolol [Inderal] 10/16/17 traZODone [Desyrel] 1 tab PO DAILY 10/16/17 Acetaminophen/Cod 300/30 [Tylenol 1 each PO ONCE 12/08/17 12/08/17 #3] Gabapentin [Neurontin] 300 mg PO TID #90 11/21/20 Oxycodone HCl/Acetaminophen 1 - 2 each PO Q6H PRN #14 tablet 11/21/20 [Percocet 5-325 mg Tablet] methylPREDNISolone [Medrol] 4 mg PO DAILY #1 11/21/20 Ondansetron Odt [Zofran] 4 mg TL Q6H PRN #10 tablet 06/05/21 Oxycodone HCl/Acetaminophen 1 - 2 each PO Q6H PRN #14 tablet 06/05/21 [Percocet 5-325 mg Tablet] - Allergies Allergies/Adverse Reactions: Allergies Allergy/AdvReac Type Severity Reaction Status Date / Time prazosin Allergy Unknown Verified 06/05/21 14:23 - Social History Does the pt smoke?: No Smoking Status: Never smoker Does the pt drink ETOH?: No Does the pt have substance abuse?: No - Immunizations Immunizations are current?: Yes - POLST Patient has POLST: No PD ED PE NORMAL - Vitals Vital signs reviewed: Yes - General General: Alert and oriented X 3, No acute distress, Well developed/nourished - HEENT HEENT: Atraumatic, PERRL, EOMI, Ears normal, Moist mucous membranes, Pharynx benign - Neck Neck: Supple, no meningeal sign, No bony TTP, C-Spine cleared by NEXUS criteria - Cardiac Cardiac: RRR, Strong equal pulses - Respiratory Respiratory: No respiratory distress, Clear bilaterally, Other - Abdomen Abdomen: Soft, Non tender, Non distended - Back Back: No spinal TTP - Derm Derm: Warm and dry - Extremities Extremities: Normal ROM s pain - Neuro Neuro: Alert and oriented X 3, pattern clerk 2-12 intact, No motor deficit, No sensory deficit, Normal speech Eye Opening: Spontaneous Motor: Obeys Commands Verbal: Oriented GCS Score: 15 - Psych Psych: Normal mood, Normal affect Results - Vitals Vitals: Vital Signs - 24 hr 06/05/21 06/05/21 06/05/21 14:16 14:22 15:41 Temperature 36.5 C 36.5 C Heart Rate 87 87 80 Respiratory 16 16 16 Rate Blood Pressure 143/93 H 143/93 H 130/70 O2 Saturation 100 100 100 Oxygen O2 Source Room air - EKG (time done) 1438 Rate: Rate (enter#) (71) Rhythm: NSR [place]: Normal Intervals: Normal [place] QRS: Normal Ischemia: Non specific changes - Labs Labs: Laboratory Tests 06/05/21 06/05/21 06/05/21 14:47 14:47 14:47 WBC 10.5 RBC 4.24 Hgb 12.5 Hct 38.5 MCV 90.8 MCH 29.5 MCHC 32.5 RDW 16.1 H Plt Count 453 H MPV 8.7 Neut # (Auto) 7.9 H Lymph # (Auto) 1.6 [place] # (Auto) 0.8 Eos # (Auto) 0.1 Baso # (Auto) 0.0 Absolute Nucleated RBC 0.00 Nucleated RBC % 0.0 Sodium 135 Potassium 3.6 Chloride 100 L Carbon Dioxide 23 Anion Gap 12.0 BUN 27 H Creatinine 0.8 Estimated GFR (MDRD) 83 L Glucose 106 H Calcium 9.3 Total Bilirubin 0.6 AST 20 ALT 19 Alkaline Phosphatase 66 Troponin I High Sens 2.7 Total Protein 7.6 Albumin 4.4 Globulin 3.2 Albumin/Globulin Ratio 1.4 Lipase 29 Urine Color Urine Clarity Urine pH Ur Specific [place] Urine Protein Urine Glucose (UA) Urine Ketones Urine Occult Blood Urine Nitrite Urine Bilirubin Urine Urobilinogen Ur Leukocyte Esterase Ur Microscopic Review Urine Culture Comments Urine HCG, Qual 06/05/21 14:53 WBC RBC Hgb Hct MCV MCH MCHC RDW Plt Count MPV Neut # (Auto) Lymph # (Auto) [place] # (Auto) Eos # (Auto) Baso # (Auto) Absolute Nucleated RBC Nucleated RBC % Sodium Potassium Chloride Carbon Dioxide Anion Gap BUN Creatinine Estimated GFR (MDRD) Glucose Calcium Total Bilirubin AST ALT Alkaline Phosphatase Troponin I High Sens Total Protein Albumin Globulin Albumin/Globulin Ratio Lipase Urine Color YELLOW Urine Clarity CLEAR Urine pH 6.0 Ur Specific [place] >=1.030 H Urine Protein NEGATIVE Urine Glucose (UA) NEGATIVE Urine Ketones NEGATIVE Urine Occult Blood NEGATIVE Urine Nitrite NEGATIVE Urine Bilirubin NEGATIVE Urine Urobilinogen 0.2 (NORMAL) Ur Leukocyte Esterase NEGATIVE Ur Microscopic Review NOT INDICATED Urine Culture Comments NOT INDICATED Urine HCG, Qual NEGATIVE - Rads (name of study) Head CT Radiology: Final report received, EMP read contemporaneously, See rad report rib xray Radiology: Final report received, EMP read contemporaneously, See rad report PD MEDICAL DECISION MAKING - ED course Complexity details: reviewed results, re-evaluated patient, considered differential, d/w patient ED course: 30-year-old female with what appeared to be micturition associated syncope last night as well as dehydration on laboratory testing today. No acute findings on head CT or rib x-ray. Likely rib contusion. Pain well controlled. Tolerating p.o. without difficulty. Declines an IV and is drinking water. No evidence of pulmonary embolus, acute coronary syndrome. No chest pain. No pleuritic chest pain. No leg swelling. I am prescribing a short course of short-acting opioid pain medication for this patient. 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 I have discussed that the opioids are for short term therapy only, and will not be refilled from the ED. patient counseled regarding signs and symptoms for which I believe and urgent re-evaluation would be necessary. Patient with good understanding of and agreement to plan and is comfortable going home at this time This document was made in part using voice recognition software. While efforts are made to proofread this document, sound alike and grammatical errors may occur. Departure - Departure Disposition: 01 Home, Self Care Clinical Impression: Dehydration, Micturition syncope Contusion of rib Qualifiers: Encounter type: initial encounter Laterality: left Qualified Code(s): S20.212A - Contusion of left front wall of thorax, initial encounter Condition: Good Instructions: ED Dehydration, ED Fainting Unkn Cause, ED Contusion Vs Minor Fx Rib Follow-Up: Perri Bowen ARNP [Primary Care Provider] - Within 1 week Prescriptions: Oxycodone HCl/Acetaminophen [Percocet 5-325 mg Tablet] 1 - 2 each PO Q6H PRN #14 tablet PRN Reason: pain Ondansetron Odt [Zofran] 4 mg TL Q6H PRN #10 tablet PRN Reason: Nausea / Vomiting Comments: Prescriptions were sent to [facility] in [place]. Please follow-up with your doctor for further care. There are no acute findings on your x-ray or head CT. Your laboratory testing and urinalysis appear consistent with dehydration. Please make sure you are drinking plenty water. I am prescribing a short course of narcotic pain medication for you. These are potentially dangerous and addictive medications that should be used carefully. These medications may constipate you. Take an kscy-bfl-emsevfm stool softener (docusate) twice daily with plenty of water while taking these medications. If you go 24 hours without a bowel movement, take pjse-grc-ddnhbsy miralax, per package instructions. Do not drink or drive while taking these medications. If you received narcotic or sedating medications while in the emergency department, do not drive for 24 hours. Store this medication in a safe, secure place and out of reach of children. It is a violation of federal law to give or sell this medication to another rson or to use in a manner other than prescribed. The ED will not refill narcotic prescriptions, including prescriptions lost or stolen. To dispose of unwanted medications: 1. [facility] [address] in [place] has a medication drop box. They accept prescription medications (in pill form) Sunday through Sunday 9:00 a.m. to 5:00 p.m. 2. The [facility] Department accepts prescription medications (in pill form only) for disposal year round. Call for more information. 3. Contact the [facility] for the next [facility] sponsored prescription drug collection event. , [phone], or [phone];
[2021-06-05 14:51] LABS: BASOPHILS % (AUTO) 0.3 %; EOSINOPHILS # (AUTO) 0.1 10^3/uL (0.0-0.7); EOSINOPHILS % (AUTO) 0.8 %; HCT - HEMATOCRIT 38.5 % (37.0-47.0); HGB - HEMOGLOBIN 12.5 g/dL (12.0-16.0); LYMPHOCYTES # (AUTO) 1.6 10^3/uL (1.5-3.5); LYMPHOCYTES % (AUTO) 15.6 %; MEAN CORPUSCULAR HEMOGLOBIN 29.5 pg (27.0-31.0); MEAN CORPUSCULAR HGB CONC 32.5 g/dL (32.0-36.0); MEAN CORPUSCULAR VOLUME 90.8 fL (81.0-99.0); MEAN PLATELET VOLUME 8.7 fL (7.9-10.8); MONOCYTES # (AUTO) 0.8 10^3/uL (0.0-1.0); MONOCYTES % (AUTO) 7.7 %; NEUTROPHILS # (AUTO) 7.9 10^3/uL (1.5-6.6); NEUTROPHILS % (AUTO) 75.4 %; PLT - PLATELET COUNT 453 10^3/uL (130-450); RED BLOOD COUNT 4.24 10^6/uL (4.20-5.40); RED CELL DISTRIBUTION WIDTH 16.1 % (12.0-15.0); WHITE BLOOD COUNT 10.5 x10^3/uL (4.8-10.8)
[2021-06-05 15:04] LABS: BILIRUBIN,URINE NEGATIVE (NEGATIVE); GLUCOSE, URINE (UA) NEGATIVE (NEGATIVE); KETONES,URINE (UA) NEGATIVE (NEGATIVE); LEUKOCYTE ESTERASE, URINE NEGATIVE (NEGATIVE); NITRITE,URINE NEGATIVE (NEGATIVE); OCCULT BLOOD,URINE NEGATIVE (NEGATIVE); PROTEIN,URINE NEGATIVE (NEGATIVE); UROBILINOGEN,URINE 0.2 (NORMAL) E.U./dL (NORMAL)
[2021-06-05 15:05] LABS: ALBUMIN 4.4 g/dL (3.2-5.5); ALBUMIN/GLOBULIN RATIO 1.4 (1.0-2.2); BILIRUBIN,TOTAL 0.6 mg/dL (0.2-1.0); CALCIUM 9.3 mg/dL (8.5-10.3); CREATININE 0.8 mg/dL (0.4-1.0); POTASSIUM 3.6 mmol/L (3.5-5.0); TOTAL PROTEIN 7.6 g/dL (6.7-8.2)
[2021-06-05 15:14] LABS: CLARITY,URINE CLEAR (CLEAR); HCG UR QUAL NEGATIVE
[2021-06-05 15:42] VITALS: BP 130/70
[2021-06-05] MEDS ORDERED: ONDANSETRON ODT 4 MG TABLET TL STA (15:51)
--- NOTE | 2021-06-05 16:01 | CT Report ---
PROCEDURE: HEAD WO INDICATIONS: syncope, head injury TECHNIQUE: Noncontrast 4.5 mm thick angled axial sections acquired from the foramen magnum to the vertex. For r adiation dose reduction, the following was used: automated exposure control, adjustment of mA and/or kV according to patient size. COMPARISON: None. FINDINGS: Image quality: Excellent. CSF spaces: Basal cisterns are patent. No extra-axial fluid collections. Ventricles are normal in size and shape. Brain: No midline shift. No intracranial masses or hemorrhage. Chan-white matter interface is norm al. Skull and face: Calvarium and visualized facial bones are intact, without suspicious lesions. Sinuses: Visualized sinuses and mastoids are clear. IMPRESSION: CT head without acute intracranial abnormalities or acute calvarial fractures. No eviden ce for mass or mass effect. Reviewed by: Jigar Varma MD on 06/05/2021 3:00 PM [facility] Approved by: Jigar Varma MD on 06/05/2021 3:00 PM [facility] Station ID: [id number]
--- NOTE | 2021-06-05 16:11 | XRAY Report ---
PROCEDURE: Ribs w/PA Chest LT INDICATIONS: syncope, rib pain TECHNIQUE: 3 views of the left ribs were acquired, along with a single view chest. COMPARISON: None FINDINGS: Surgical changes and devices: None. Bones and chest wall: No fractures or dislocations. No suspicious bony lesions. Overlying soft tis sues appear unremarkable. Lungs and pleura: No pleural effusions or pneumothorax. Lungs appear clear. Mediastinum: Mediastinal contours appear normal. Heart size is normal. IMPRESSION: Chest without acute cardiopulmonary abnormalities. No focal airspace disease. No acute/displaced rib fractures identified. Reviewed by: Jigar Varma MD on 06/05/2021 3:10 PM [facility] Approved by: Jigar Varma MD on 06/05/2021 3:10 PM [facility] Station ID: [id number]
== END 2021-06-05 16:31 | disposition home or self-care (01) ==
LOC: ED 14:07
DX: S20.212A Contusion of left front wall of thorax, initial encounter (principal); X58.XXXA Exposure to other specified factors, initial encounter; I10 Essential (primary) hypertension; E86.0 Dehydration
CPT/HCPCS: 36415; 70450; 71101; 80053; 81003; 81025; 83690; 84484; 85025; 93005; 99284; A9270; Q0162; 81001; 87086

== ENCOUNTER 2022-07-18 09:19 | Outpatient (CLI) | payer OTHER ==
[2022-07-18 12:02] LABS: BASOPHILS # (AUTO) 0.1 10^3/uL (0.0-0.1); BASOPHILS % (AUTO) 1.1 %; EOSINOPHILS # (AUTO) 0.5 10^3/uL (0.0-0.7); EOSINOPHILS % (AUTO) 7.1 %; HCT - HEMATOCRIT 38.8 % (37.0-47.0); HGB - HEMOGLOBIN 12.4 g/dL (12.0-16.0); LYMPHOCYTES # (AUTO) 1.8 10^3/uL (1.5-3.5); LYMPHOCYTES % (AUTO) 28.2 %; MEAN CORPUSCULAR HEMOGLOBIN 29.5 pg (27.0-31.0); MEAN CORPUSCULAR VOLUME 92.4 fL (81.0-99.0); MEAN PLATELET VOLUME 9.3 fL (7.9-10.8); MONOCYTES # (AUTO) 0.6 10^3/uL (0.0-1.0); MONOCYTES % (AUTO) 9.5 %; NEUTROPHILS # (AUTO) 3.5 10^3/uL (1.5-6.6); NEUTROPHILS % (AUTO) 53.9 %; PLT - PLATELET COUNT 420 10^3/uL (130-450); RED CELL DISTRIBUTION WIDTH 15.9 % (12.0-15.0); WHITE BLOOD COUNT 6.5 x10^3/uL (4.8-10.8)
[2022-07-18 12:33] LABS: ALBUMIN 3.9 g/dL (3.2-5.5); ALBUMIN/GLOBULIN RATIO 1.2 (1.0-2.2); ALKALINE PHOSPHATASE 67 IU/L (42-121); ALT ALANINE AMINOTRANSFERASE 22 IU/L (10-60); AST ASPARTATE AMINOTRANSFERASE 20 IU/L (10-42); BILIRUBIN,TOTAL 0.2 mg/dL (0.2-1.0); BUN - BLOOD UREA NITROGEN 20 mg/dL (6-20); CALCIUM 9.2 mg/dL (8.5-10.3); CARBON DIOXIDE - CO2 27 mmol/L (21-32); CHLORIDE 103 mmol/L (101-111); CHOL/HDL RATIO 5.2 (<4.4); CHOLESTEROL 282 mg/dL; CREATININE 0.7 mg/dL (0.4-1.0); GFR - MDRD 96 (>89); GLUCOSE 103 mg/dL (70-100); HDL CHOLESTEROL 54 mg/dL; LDL CHOLESTEROL,CALCULATED 177 mg/dL; LDL/HDL RATIO 3.3 (<4.4); POTASSIUM 3.9 mmol/L (3.5-5.0); SODIUM 137 mmol/L (135-145); TOTAL PROTEIN 7.2 g/dL (6.7-8.2); TRIGLYCERIDES 256 mg/dL; VLDL CHOLESTEROL 51 mg/dL
[2022-07-18 12:44] LABS: THYROID STIMULATING HORMONE 1.43 uIU/mL (0.34-5.60)
== END 2022-07-18 09:20 | disposition home or self-care (01) ==
LOC: LAB.N 09:19
PROVIDERS: ATTEND Nurse Practitioner
DX: I10 Essential (primary) hypertension (principal); Z13.220 Encounter for screening for lipoid disorders; Z13.29 Encounter for screening for other suspected endocrine disorder
CPT/HCPCS: 36415; 80053; 80061; 83721; 84443; 85025

== ENCOUNTER 2022-09-01 19:05 | Outpatient (CLI) | payer OTHER ==
--- NOTE | 2022-09-02 00:47 | Ultrasound Report ---
PROCEDURE: Pelvic w/Transvaginal INDICATIONS: PELVIC PAIN TECHNIQUE: Real-time scanning was performed of the pelvic organs, with image documentation. Additional endovagi nal scanning was necessary due to incomplete visualization of the adnexal and endometrial structures by transabdominal scanning. COMPARISON: 04/21/2017 FINDINGS: Uterus: Uterus is anteverted and normal in size at 9.2 x 4.4 x 5.6 cm. The myometrium is heterogene ous. The endometrium measures 18 mm in combined thickness. No abnormal vascularity can be seen rob g the endometrial stripe. Ovaries: The right ovary measures 3.3 x 2.7 x 3 cm, with a calculated ovarian volume of 14.1 cc. 2 simple appearing cysts can be seen within the right ovary that measure up to 1.5 cm and up to 1.8 cm respectively. The left ovary measures 3.2 x 2.1 x 2.5 cm, with a calculated ovarian volume of 8.6 cc. The left ovar y demonstrates a complex cyst that measures up to 1.9 cm. Less than 12 follicles can be seen in each ovary. No adnexal masses are seen. No cystic lesions tomasz uring greater than 3 cm. Other: No pathologic free abdominal or pelvic fluid. IMPRESSION: Thickened endometrial stripe measuring up to 18 mm. No abnormal vascularity can be seen along the endometrial stripe. 1.9 cm complex left ovarian cyst seen. If clinically appropriate, please consider a short-term follow-up ultrasound in 6 weeks to ensure res olution/improvement. Reviewed by: Uvaldo Ross MD on 09/01/2022 11:45 PM [facility] Approved by: Uvaldo Ross MD on 09/01/2022 11:45 PM [facility] Station ID: [id number]
== END 2022-09-01 19:06 | disposition home or self-care (01) ==
LOC: DI 19:05
PROVIDERS: ATTEND Nurse Practitioner
DX: R10.2 Pelvic and perineal pain (principal); N83.292 Other ovarian cyst, left side

== ENCOUNTER 2023-04-11 12:03 | Outpatient (CLI) | payer BC ==
[2023-04-11 17:56] LABS: BASOPHILS # (AUTO) 0.1 10^3/uL (0.0-0.1); BASOPHILS % (AUTO) 0.7 %; EOSINOPHILS # (AUTO) 0.3 10^3/uL (0.0-0.7); EOSINOPHILS % (AUTO) 3.5 %; HGB - HEMOGLOBIN 12.2 g/dL (12.0-16.0); LYMPHOCYTES # (AUTO) 2.1 10^3/uL (1.5-3.5); LYMPHOCYTES % (AUTO) 23.2 %; MEAN CORPUSCULAR HEMOGLOBIN 29.3 pg (27.0-31.0); MEAN CORPUSCULAR HGB CONC 32.1 g/dL (32.0-36.0); MEAN CORPUSCULAR VOLUME 91.1 fL (81.0-99.0); MEAN PLATELET VOLUME 9.4 fL (7.9-10.8); MONOCYTES # (AUTO) 0.6 10^3/uL (0.0-1.0); MONOCYTES % (AUTO) 6.8 %; NEUTROPHILS # (AUTO) 5.8 10^3/uL (1.5-6.6); NEUTROPHILS % (AUTO) 65.6 %; PLT - PLATELET COUNT 543 10^3/uL (130-450); RED BLOOD COUNT 4.17 10^6/uL (4.20-5.40); RED CELL DISTRIBUTION WIDTH 14.6 % (12.0-15.0); WHITE BLOOD COUNT 8.8 x10^3/uL (4.8-10.8)
[2023-04-11 18:02] LABS: ALBUMIN 4.4 g/dL (3.2-5.5); ALBUMIN/GLOBULIN RATIO 1.7 (1.0-2.2); BILIRUBIN,TOTAL 0.2 mg/dL (0.2-1.0); CALCIUM 9.8 mg/dL (8.5-10.3); CREATININE 0.6 mg/dL (0.6-1.3); POTASSIUM 3.7 mmol/L (3.5-4.5)
== END 2023-04-11 12:04 | disposition home or self-care (01) ==
LOC: LAB.N 12:03
PROVIDERS: ATTEND Nurse Practitioner
DX: R05.9 Cough, unspecified (principal); R53.83 Other fatigue
CPT/HCPCS: 36415; 80053; 85025

== ENCOUNTER 2023-04-11 12:09 | Outpatient (CLI) | payer BC ==
--- NOTE | 2023-04-11 14:25 | XRAY Report ---
PROCEDURE: Chest 2V INDICATIONS: COUGH TECHNIQUE: 2 views of the chest were acquired. COMPARISON: Chest radiograph on November 21, 2020. FINDINGS: Surgical changes and devices: None. Lungs and pleura: No pleural effusions or pneumothorax. Lungs are clear. Mediastinum: Mediastinal contours appear normal. Heart size is normal. Bones and chest wall: No suspicious bony lesions. Overlying soft tissues appear unremarkable. IMPRESSION: No acute cardiopulmonary process. Reviewed by: Ramonita Stephens MD on 04/11/2023 2:23 PM PST Approved by: Ramonita Stephens MD on 04/11/2023 2:23 PM PST Station ID: [id number]
== END 2023-04-11 12:10 | disposition home or self-care (01) ==
LOC: DI.N 12:09
PROVIDERS: ATTEND Nurse Practitioner
DX: R05.9 Cough, unspecified (principal); R53.83 Other fatigue
CPT/HCPCS: 36415; 80053; 85025

== ENCOUNTER 2023-07-21 09:19 | Outpatient (CLI) | payer BC ==
[2023-07-21 18:54] LABS: BASOPHILS # (AUTO) 0.1 10^3/uL (0.0-0.1); EOSINOPHILS # (AUTO) 0.2 10^3/uL (0.0-0.7); HCT - HEMATOCRIT 40.9 % (37.0-47.0); HGB - HEMOGLOBIN 12.3 g/dL (12.0-16.0); LYMPHOCYTES # (AUTO) 1.9 10^3/uL (1.5-3.5); LYMPHOCYTES % (AUTO) 33.9 %; MEAN CORPUSCULAR HEMOGLOBIN 28.7 pg (27.0-31.0); MEAN CORPUSCULAR HGB CONC 30.1 g/dL (32.0-36.0); MEAN CORPUSCULAR VOLUME 95.3 fL (81.0-99.0); MEAN PLATELET VOLUME 9.4 fL (7.9-10.8); MONOCYTES # (AUTO) 0.5 10^3/uL (0.0-1.0); MONOCYTES % (AUTO) 8.7 %; NEUTROPHILS # (AUTO) 3.1 10^3/uL (1.5-6.6); NEUTROPHILS % (AUTO) 53.2 %; PLT - PLATELET COUNT 568 10^3/uL (130-450); RED BLOOD COUNT 4.29 10^6/uL (4.20-5.40); WHITE BLOOD COUNT 5.7 x10^3/uL (4.8-10.8)
[2023-07-21 18:59] LABS: ESTIMATED AVERAGE GLUCOSE 108 mg/dL (70-100); HEMOGLOBIN A1c% 5.4 % (4.27-6.07)
[2023-07-21 19:15] LABS: THYROID STIMULATING HORMONE 1.61 uIU/mL (0.34-5.60)
[2023-07-21 19:18] LABS: ALBUMIN 4.3 g/dL (3.2-5.5); ALBUMIN/GLOBULIN RATIO 1.5 (1.0-2.2); ALKALINE PHOSPHATASE 76 IU/L (42-121); ALT ALANINE AMINOTRANSFERASE 16 IU/L (10-60); AST ASPARTATE AMINOTRANSFERASE 17 IU/L (10-42); BILIRUBIN,TOTAL 0.4 mg/dL (0.2-1.0); BUN - BLOOD UREA NITROGEN 21 mg/dL (6-20); CALCIUM 10.3 mg/dL (8.5-10.3); CARBON DIOXIDE - CO2 25 mmol/L (21-32); CHLORIDE 102 mmol/L (101-111); CHOLESTEROL 231 mg/dL; CREATININE 0.7 mg/dL (0.6-1.3); GFR - MDRD 95 (>89); GLUCOSE 90 mg/dL (74-104); HDL CHOLESTEROL 46 mg/dL; LDL CHOLESTEROL,CALCULATED 160 mg/dL; LDL/HDL RATIO 3.5 (<4.4); POTASSIUM 4.6 mmol/L (3.5-4.5); SODIUM 135 mmol/L (135-145); TOTAL PROTEIN 7.2 g/dL (6.4-8.9); TRIGLYCERIDES 126 mg/dL (48-352); VLDL CHOLESTEROL 25 mg/dL
== END 2023-07-21 09:20 | disposition home or self-care (01) ==
LOC: LAB.N 09:19
PROVIDERS: ATTEND Nurse Practitioner
DX: I10 Essential (primary) hypertension (principal); Z13.220 Encounter for screening for lipoid disorders; R73.03 Prediabetes; E66.9 Obesity, unspecified
CPT/HCPCS: 36415; 80053; 80061; 83036; 83721; 84443; 85025

== ENCOUNTER 2023-12-26 10:45 | Outpatient (CLI) | payer BC ==
--- NOTE | 2023-12-26 16:47 | XRAY Report ---
PROCEDURE: Elbow 1-2V LT INDICATIONS: CONTUSION OF LEFT ELBOW TECHNIQUE: 2 views of the elbow were acquired. COMPARISON: Left elbow x-ray 11/29/2019 FINDINGS: Minimal lucency across the tip of the coronoid process of the ulna, best identified on the lateral vi ew. No other fracture or dislocation. No joint effusion. The radiocapitellar and humerocapitellar brianda es are in expected position. IMPRESSION: Projectional artifact at the tip of the coracoid process of the ulna versus a minimally displaced fra cture. If there is a history of acute posterior elbow dislocation, then consider a CT of the elbow wi thout contrast for further evaluation. Reviewed by: Marquis Fields MD on 12/26/2023 4:46 PM PDT Approved by: Marquis Fields MD on 12/26/2023 4:46 PM PDT Station ID: [id number]
== END 2023-12-26 11:00 | disposition home or self-care (01) ==
LOC: DI.N 10:45
PROVIDERS: ATTEND Physician Assistant Medical
DX: S50.02XA Contusion of left elbow, initial encounter (principal); R93.6 Abnormal findings on diagnostic imaging of limbs